=== PATIENT | female | born 1955 | race Caucasian/White ===

== ENCOUNTER → 2019-03-05 15:51 | Outpatient (CLI) | payer BC, SELFPAY ==
--- NOTE | 2019-03-05 15:57 | CT_ITS ---
PROCEDURE: CT LUNG SCREENING CLINICAL INDICATION: SMOKING Forty-five pack-year smoking history, asymptomatic for lung cancer COMPARISON: No exams were available for comparison TECHNIQUE: The exam was performed on a GE Light Speed [address] scanner using 2.90 mGy CTDI. A low dose helical CT CHEST was performed on a multi-detector scanner. All CT scans at the facility use one or more dose reduction, viz: automated exposure control, ma/kV adjustment per patient size (including targeted exams where dose is matched to indication, i.e. head), or iterative reconstruction technique. The LDCT was performed in a facility that meets the criteria for the screening program. Data regarding this exam was submitted to ACR which is an approved registry. The order for this exam indicates that it came as a result of a lung cancer screening counseling shard decision-making visit that included all the elements required of such a visit including smoking cessation. The radiologist interpreting this exam meets the CMS criteria for the LDCT lung cancer screening program. The exam is reported using the Lung-RADS classification scale and reported to the ACR registry. NOTE: This study was performed for the specific purposes of lung cancer screening and is not an alternative to diagnostic chest CT. RADIATION DOSE: CTDI vol(CT dose Index-volume) = 2.90mG DLP (Dose Length Product) = 100.44 mGcm FINDINGS: No mediastinal or hilar mass. Coronary artery calcifications are present. Normal heart size. Small hiatal hernia. There are mild atelectatic or fibrotic changes in the right lung base. Minimal parenchymal opacity noted in the right middle lobe medially probably due to small area of atelectasis or fibrosis. Upper abdominal images demonstrates exophytic isodense the along the posterior lateral aspect of the right kidney inferiorly incompletely imaged measuring at least 6.4 cm.. A small hyperdense area noted along the upper pole of the right kidney laterally at 7 mm and may be due to hyperdense cyst. Lobularity noted along the right kidney anteriorly at 2 cm. This also may be due to cyst but is more dense of what 1 would expect for simple cyst. An exophytic density projects off the anterolateral aspect of the left kidney measuring near water density and may represent a cyst. OTHER FINDINGS: The left adrenal gland is enlarged measuring 3 cm with an internal density at around -1 Hounsfield units consistent with an adenoma. There are degenerative changes in the thoracic spine. 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 This involves a the serratus muscles. IMPRESSION: Lung rads category 2 benign findings Coronary artery calcifications, Probable large right renal cyst with an isodense to the noted anteriorly on the right and may be due to renal lobulation or more dense cyst with a cyst also suspected on the left and a hyperdense cyst in the upper pole of the right kidney. Recommend bilateral renal ultrasound for further evaluation Probable left adrenal adenoma. Recommend annual LD CT Dictated by: Jimenez Rae MD 03/06/2019 09:14 Electronically signed by Jimenez Rae MD in [place] 03/06/2019 09:14
== END ==
PROVIDERS: PCP Internal Medicine; Visit Provider Internal Medicine
DX: Z87.891 Personal history of nicotine dependence (principal); Z12.2 Encounter for screening for malignant neoplasm of respiratory organs

== ENCOUNTER → 2019-03-19 10:02 | Outpatient (CLI) | payer BC, SELFPAY ==
--- NOTE | 2019-03-19 10:15 | US_ITS ---
PROCEDURE: US KIDNEY CLINICAL INDICATION: KIDNEY CYSTS BILAT COMPARISON: CT LUNG SCREENING from 03/05/2019 FINDINGS: Right kidney is 10.2 x 4.0 x 6.5 centimeters. The lower pole right kidney shows a hypoechoic lesion measuring 8.9 centimeters with irregular multiple internal septations. There is however some distal acoustic enhancement. There is no vascular flow of flow associated with the lesion. The echogenicity of the cortex compared to the liver appears to be normal. The suspected hyperdense upper pole right renal lesion on the CT scan is not visualized by ultrasound. Left kidney is 9.8 x 4.9 x 5.3 centimeters. The mid-lateral nodular focus measuring 1.4 centimeters in the cortex area is similar echogenicity compared to the renal cortex and there is no shadowing or enhancement. There is no shadowing echogenic foci hydronephrosis bilaterally. IMPRESSION: Right kidney shows complex septated lower pole cystic lesion measuring 8.9 centimeters. The described upper pole right renal nodule on the CT scan is not visualized. Mid lateral cortex left renal nodule area is indeterminate by ultrasound. To further evaluate these areas which are incompletely evaluated by ultrasound suggest MRI of the kidneys with and without contrast. Dictated by: Chris Lopez 03/19/2019 11:47 Electronically signed by Chris Lopez in [place] 03/19/2019 11:47
== END ==
PROVIDERS: PCP Internal Medicine; Visit Provider Internal Medicine
DX: N28.1 Cyst of kidney, acquired (principal)
CPT/HCPCS: 76770

== ENCOUNTER → 2019-03-27 07:14 | Outpatient (CLI) | payer BC, SELFPAY ==
--- NOTE | 2019-03-27 | CA_ITS ---
APPROVED REPORT Exam: Exercise Treadmill Technologist: Grace Sesay Ht: 5 ft 3 in Wt: 180 lbs BSA: 1.85 m2 HR: 77 bpm BP: 153/83 mmHg Indications: Shortness of Air, chest pain Medical History Medications: Aspirin,,,,, Stress Test Details Test: Dajuan HR Resting HR: 82 bpm Max Heart Rate (APMHR): 158 bpm Max HR Achieved: 139 bpm Target HR (85% APMHR): 134 bpm % of APMHR: 87 Recovery HR: 92 bpm BP Resting BP: 153.0/83.0 mmHg Max BP: 218.0/86.0 mmHg Recovery BP: 153.0/88.0 mmHg ECG Clinical Exercise duration: 06:00 min Highest Stage Achieved: Exercise capacity: 7.0 METs Stress ECG Conclusion Resting ECG: Normal sinus rhythm Patient exercised 6:00 on Dajuan Protocol. Test stopped due to shortness of air, fatigue. Symptoms: No chest pain. Arrhythmias/Ectopy: None ST-T Changes: 1mm horizontal and upsloping ST depression inferiorly at peak exercise. In late recovery, there is a 3/4mm horizontal ST depression inferiorly and 1/2mm laterally. Conclusion: Equivocal EKGs for ischemia. Myoview images reported separately.l Electronically signed by : Alex Ashton, 03/27/2019 20:32:44
--- NOTE | 2019-03-27 07:15 | CA_ITS ---
APPROVED REPORT EXAM: Comprehensive 2D, Doppler, and color-flow Echocardiogram City Superintendent: Vielka Bear RDCS Ht: 5 ft 3 in Wt: 186lbs BSA: 1.88 BP: 158/90 mmHg Indications: Chest Pain, Shortness of Breath, Obesity, Hypertension/HDD 2D Dimensions LVOT 2.00 cm (M/F) 1.5-2.5 M-Mode Dimensions RVDd 1.50 cm (0.9-2.6) LA Diam 2.40 cm (1.9-4.0) LVDd 5.60 cm (3.5-5.7) Ao Diam 3.10 cm (2.0-3.7) LVDs 4.20 cm (3.5-5.7) AV Cusp 2.00 cm (1.5-2.6) IVSd 1.40 cm (0.6-1.1) PWd 0.90 cm (0.6-1.1) EF (Teich) 49.00% FS 25.00% EDV (Teich) 154.00 mL ESV (Teich) 78.60 mL LV Diastology E/A Ratio 0.7 MED E' 6.82 (< 7 cm/sec) E'/MED E' Ratio 7.80 (>14) LAT E' 8.87 (<10 cm/sec) E/LAT E' Ratio 6.00 (>14) Mitral Valve MV E Max Juan F. 53.30 (40-130 cm/s) MV A Velocity 75.00 (40-130 cm/s) E/A Ratio 0.70 Left Ventricle Left atrium is mildly enlarged, left ventricle is normal size, mild concentric left ventricular hypertrophy, visually estimated ejection fraction 55% with no regional wall motion abnormality. Right Ventricle Right atrium and right ventricular mildly enlarged with normal contractility. Aortic Valve Aortic valve is minimally thickened and fibrosed. There is no aortic stenosis aortic insufficiency. Mitral Valve Mitral valve is grossly normal, there is mild mitral regurgitation. Tricuspid Valve Tricuspid valve is grossly normal, there is mild tricuspid regurgitation. Pulmonic Valve Pulmonic valve is poorly visualized. Great Vessels Aortic root is normal size. Pericardium No significant pericardial effusion noted. Conclusion 1. Normal left ventricular size, mild concentric left ventricular hypertrophy, visually estimated ejection fraction 55% with no regional wall motion abnormality, grade 1 diastolic dysfunction seen without tissue Doppler evidence of raise left atrial pressure. 2. Mild mitral and tricuspid regurgitation. 3. No significant pericardial effusion noted. Electronically signed by : Alex Ashton, 03/28/2019 07:03:51
--- NOTE | 2019-03-27 07:15 | NM_ITS ---
APPROVED REPORT Exam: Nuclear Stress Test Indication: chest pain, soa Patient Location: Outpatient Stress Tech: Grace Sesay OR Tech:Candis Vigil RYAN RT(R)(N) Ht: 5 ft 3 in Wt: 180 lbs Bra Size: xl HR: 77 bpm BP: 153/83 mmHg BSA: 1.85 m2 BMI: 31.8 History: chest pain, soa Procedure: Patient exercised on Dajuan protocol 6:00 minutes and sec, resting heart rate 77 bpm, resting blood pressure 153/83 mmHg, with exercise maximum heart rate achived was 139 bpm which is 88 % of the maximum predicted heart rate and blood pressure was 200/88 mmHg. Patient denied any complaint of chest pain. Patient has Adequate exercise capacity, achieved 7.0 METs of workload on treadmill, the blood pressure response to exercise was Hypertensive. Electrocardiogram Resting electrocardiogram showed sinus rhythm, with exercise there is almost a millimeter ST segment depression noted from the baseline EKG, more pronounced in the recovery. The EKG portion of the exercise Myoview is borderline for ischemia. Cardiac Stress and Resting SPECT Images: Cardiac Stress and Resting SPECT images were obtained using technetium 99m Myoview 31.1 mCi stress and 10.38 mCi at rest. Gated SPECT with analysis of segmental wall motion and calculation of the ejection fraction also done. Cardiac stress and resting SPECT images show uniform myocardial activity without segmental perfusion abnormality, computer derived ejection fraction is over 65% with no regional wall motion abnormality, right ventricle is normal size and contractility. Conclusion: 1. The EKG portion of the exercise Myoview is borderline for ischemia, patient has adequate exercise capacity achieved 7 mets of workload on treadmill, the blood pressure response to exercise was hypertensive, there was no exercise-induced chest discomfort. 2. No scintigraphic evidence of reversible ischemia seen at this level of exercise, computer derived ejection fraction is over 65% with no regional wall motion abnormality, right ventricle is normal size and contractility. Electronically signed by : Alex Ashton, 03/27/2019 20:35:04
--- NOTE | 2019-03-27 10:25 | HMH.ITSHM ---
Current Home Medications as stated by this patient Connor Garcia or medical field representative. [] asa
== END ==
PROVIDERS: PCP Internal Medicine; Visit Provider Nurse Practitioner Family
DX: R06.00 Dyspnea, unspecified (principal); R07.9 Chest pain, unspecified; F17.200 Nicotine dependence, unspecified, uncomplicated
CPT/HCPCS: 78452; 93017; 93306; A9502

== ENCOUNTER → 2019-04-03 07:50 | Outpatient (CLI) | payer BC, SELFPAY ==
[2019-04-03 08:21] LABS: Blood Urea Nitrogen 11 mg/dL (7-18); Creatinine,Serum 1.02 mg/dL (0.55-1.02); Estimated Glomerular Filt Rate 55 ml/min (>60); GFR (African American) 66 ML/MIN (>60)
--- NOTE | 2019-04-03 09:08 | MR_ITS ---
PROCEDURE: MR ABDOMEN WO/W CON CLINICAL INDICATION: RIGHT KIDNEY CYST Follow-up complex renal lesions COMPARISON: CT LUNG SCREENING from 03/05/2019 US KIDNEY from 03/19/2019 TECHNIQUE: Routine multiplanar multi echo sequences are performed without and with gadolinium enhancement. FINDINGS: There are multiple bilateral renal cyst. The largest cyst on the right includes a multi-septated complex cyst along the lower pole of the right kidney measuring 8.3 x 6.4 by 6.1 cm. In addition, there is a 2 cm cyst in the upper pole medially. . No abnormal enhancement is evident of the multi locular septated cystic lesion. The septa are thin without nodular enhancement. There is some hairline enhancement of the smooth septa with only minimal thickening of the septum inferiorly. This would represent a Bosniak 2 F minimally complex cyst recommend six-month follow-up. On the left there are multiple small cysts the largest at 1.6 cm in the mid polar region laterally. No suspicious nodules are evident on the left. A 7 mm nodules present along the mid polar region laterally and is hypointense on the T2 weighted images. The liver, spleen, right adrenal gland, and pancreas has an unremarkable appearance. There is a left adrenal nodule which measures 2.2 cm which shows some signal dropout on the out of phase images. The density of the nodule on CT is near that of water. This is probably related to an adenoma. Follow-up is suggested. The nodule has a somewhat heterogeneous appearance with some mild low-grade enhancement IMPRESSION: 1. 8 cm complex multi septated cyst along the lower pole of the right kidney. There are some thin hairline enhancing septa with some minimal thickening of the septa inferiorly. No nodular thickening or solid component evident. This is considered a Bosniak type 2 F minimally complex cyst. Six-month MRI follow-up is recommended. 2. Bilateral renal cysts. 3. Probable left renal adenoma. Suggest follow-up in 6 months Dictated by: Jimenez Rae MD 04/05/2019 05:18 Electronically signed by Jimenez Rae MD in [facility] 04/06/2019 11:27
--- NOTE | 2019-04-03 11:21 | HMH.ITSHM ---
Current Home Medications as stated by this patient Connor Garcia or jewelry sales representative. []LOSARTAN METOPROLOL
== END ==
PROVIDERS: Visit Provider Internal Medicine
DX: N28.1 Cyst of kidney, acquired (principal)
CPT/HCPCS: 36415; 74183; 82565; 84520; A9576

== ENCOUNTER → 2019-04-12 14:11 | Outpatient (CLI) | payer BC, SELFPAY ==
[2019-04-12 15:31] LABS: Anion Gap 13.1 mEq/L (5-15); Blood Urea Nitrogen 14 mg/dL (7-18); Calcium 9.1 mg/dL (8.5-10.1); Carbon Dioxide 28 mmol/L (21.0-32.0); Chloride 102 mmol/L (98-107); Estimated Glomerular Filt Rate 63 ml/min (>60); GFR (African American) 77 ML/MIN (>60); Glucose 123 mg/dL (74-106); Potassium 4.1 mmoL/L (3.5-5.1); Sodium 139 mmol/L (136-145)
== END ==
PROVIDERS: Visit Provider Urology
DX: I25.10 Atherosclerotic heart disease of native coronary artery without angina pectoris (principal); R06.00 Dyspnea, unspecified; R07.9 Chest pain, unspecified; I10 Essential (primary) hypertension; R53.83 Other fatigue; F17.200 Nicotine dependence, unspecified, uncomplicated; Z82.49 Family history of ischemic heart disease and other diseases of the circulatory system
CPT/HCPCS: 36415; 80048

== ENCOUNTER → 2019-04-17 15:58 | Outpatient (CLI) | payer BC, SELFPAY ==
--- NOTE | 2019-04-17 16:05 | MM_ITS ---
PROCEDURE: MM DIG SCREENING MAMM BI W/CAD Patient Age:64Y CLINICAL INDICATION: SCREENING No hormones no new complaints.. Previous cyst aspiration left breast family history. Paternal grandmother COMPARISON: DIGMAMMDX MAMMOGRAM DX-SPEECH LANGUAGE THERAPIST N/C from 10/06/2007 DIGMAMMDX MAMMOGRAM DX-SPEECH LANGUAGE THERAPIST N/C from 05/07/2008 [facility] DIG MAMM-SCREEN JANEY from 05/04/2013 [facility] DIG MAMM-SCREEN JANEY from 06/14/2016 TECHNIQUE: Standard CC and MLO images were obtained. R2 CAD reviewed. FINDINGS: Residual mild/Moderate dense breast tissue which dissipates from one-view to another but overall pattern is similar to previous studies with no significant new findings but no dominant or suspicious mass. CAD highlights no areas of concern but. Bilateral follow-up 1 year adequate Left breast: No significant new findings Small metallic marker clip left breast from previous percutaneous biopsy superior left breast again noted. Other minor areas asymmetric density stable, a IMPRESSION: Stable bilateral mammogram. No new areas of concern. Bilateral follow-up 1 year BI-RAD Category: 1 Negative FOLLOW-UP: 1YR 1 Year Follow-up (A letter has been sent to the patient regarding results of the study.) Dictated by: Darshan Groves MD 04/19/2019 14:05 Electronically signed by Darshan Groves MD in [facility] 04/19/2019 14:05
== END ==
PROVIDERS: PCP Internal Medicine; Visit Provider Internal Medicine
DX: Z12.31 Encounter for screening mammogram for malignant neoplasm of breast (principal)
CPT/HCPCS: 77067

== ENCOUNTER → 2020-03-13 10:03 | Outpatient (CLI) | payer BC, SELFPAY ==
--- NOTE | 2020-03-13 10:17 | MR_ITS ---
PROCEDURE: MR ABDOMEN WO/W CON CLINICAL INDICATION: KIDNEY CYST 6 MONTH F/U RENAL CYST Follow-up Bosniak 2 F cyst COMPARISON: CT CT LUNG SCREENING from 03/05/2019 MR MR ABDOMEN WO/W CON from 04/03/2019 TECHNIQUE: Routine multiplanar multi echo sequences are performed without and with gadolinium enhancement. FINDINGS: There are numerous bilateral renal cysts. The largest cyst represents a complex cyst along the lower pole of the right kidney as previously described. This measures 8.4 cm cephalad caudad and 6.9 cm transverse. There are some internal septations as previously described. Cyst does not appear significantly changed. There is some minimal thin enhancement of the septations. No thick nodular enhancement is evident.. There has been no significant change compared to the previous exam. The left adrenal gland is enlarged with decreased signal intensity on the out of phase images in keeping with an adenoma. The adrenal gland measures 2.4 by 2.5 cm and is slightly larger from the previous study previously measuring 2.4 x 2.3 cm. Continued follow-up is suggested. IMPRESSION: 1. Stable complex right renal cyst. 2. Left adrenal nodule slightly larger but shows decreased intensity on the out of phase imaging suggesting an adenoma. Suggest [address] follow-up to confirm stability. Dictated by: Jimenez Rae MD 03/18/2020 08:17 Jimenez Rae MD in [place] 03/18/2020 08:17
[2020-03-13 10:27] LABS: Blood Urea Nitrogen 15 mg/dl (7-17); Estimated Glomerular Filt Rate 72 ml/min (>60); GFR (African American) 88 ML/MIN (>60)
== END ==
PROVIDERS: PCP Internal Medicine; Visit Provider Internal Medicine
DX: N28.1 Cyst of kidney, acquired (principal)
CPT/HCPCS: 36415; 74183; 82565; 84520; A9576

== ENCOUNTER → 2020-09-26 16:09 | Outpatient (CLI) | payer BC, SELFPAY ==
[2020-09-26 16:23] LABS: Basophils # 0.1 K/mm3 (0-0.2); Basophils % 0.7 % (0.1-2.0); Eosinophils # 0.2 K/mm3 (0.0-0.4); Eosinophils % 1.7 % (0.1-12.0); Hematocrit 45.3 % (37.0-47.0); Hemoglobin 14.4 g/dL (12.2-16.2); Lymphocytes # 3.2 K/mm3 (0.7-4.5); Lymphocytes % 32.2 % (10-50); Mean Corpuscular HGB Conc 31.8 g/dL (31.8-35.4); Mean Corpuscular Hemoglobin 30.2 pg (27.0-31.2); Mean Corpuscular Volume 94.8 fl (81-99); Mean Platelet Volume 8.1 fl (7.4-10.4); Monocytes # 0.5 K/mm3 (0.1-1.0); Monocytes % 5.3 % (1.7-9.3); Neutrophils % 60.2 % (37.0-80.0); Platelet Count 182 K/mm3 (142-424); Red Blood Count 4.78 M/mm3 (4.20-5.40); Red Cell Distribution Width 13.5 % (11.5-17.5)
[2020-09-26 18:39] LABS: Chloride 107 mmol/L (98-107); Sodium 138 mmol/L (136-145)
[2020-09-26 18:41] LABS: Alanine Aminotransferase 17 U/L (12-78); Aspartate Amino Transferase 20 U/L (14-36); Blood Urea Nitrogen 13 mg/dl (7-17); Estimated Glomerular Filt Rate 72 ml/min (>60); GFR (African American) 88 ML/MIN (>60)
[2020-09-26 18:42] LABS: Albumin Level 4.3 g/dl (3.5-5.0); Albumin/Globulin Ratio 1.8 (1.1-1.8); Alkaline Phosphatase 136 U/L (38-126); Bilirubin,Total 0.3 mg/dl (0.2-1.3); Calcium 9.3 mg/dl (8.4-10.2); Carbon Dioxide 24 mmol/L (22.0-30.0); Chol/HDL Ratio 4.5 (1-3.5); Cholesterol 203 mg/dl (140-200); Globulin 2.4 g/dL (1.3-3.2); Glucose 126 mg/dl (74-100); HDL Cholesterol 45 mg/dl (40-60); Total Protein,Serum 6.7 g/dl (6.3-8.2); Triglycerides 178 mg/dl (30-150); VLDL Cholesterol 36 mg/dL (0-40)
[2020-09-26 18:54] LABS: Direct LDL Cholesterol 122.61 mg/dL (100-129)
== END ==
PROVIDERS: Visit Provider Internal Medicine
DX: G43.909 Migraine, unspecified, not intractable, without status migrainosus (principal); E78.5 Hyperlipidemia, unspecified; J44.9 Chronic obstructive pulmonary disease, unspecified
CPT/HCPCS: 80053; 80061; 85025

== ENCOUNTER → 2020-09-29 08:42 | Outpatient (CLI) | payer BC, SELFPAY ==
--- NOTE | 2020-09-29 08:52 | MR_ITS ---
PROCEDURE: MR ABDOMEN WO/W CON CLINICAL INDICATION: F/U RENAL LESION Six-month follow-up renal cysts COMPARISON: MR MR ABDOMEN WO/W CON from 04/03/2019 MR MR ABDOMEN WO/W CON from 03/13/2020 TECHNIQUE: Routine multiplanar multi echo sequences are performed without and with gadolinium enhancement. FINDINGS: There are numerous bilateral renal cyst more extensive on the right compared to the left with a large septated cyst along the lower pole of the right kidney measuring 8.6 x 7.4 6.5 cm not significantly changed. There is some minimal thin enhancement of the septations as before as seen on the.. No coarse or lobular enhancement evident. There is some slight increase in T1 signal of the cystic contents with some variable T2 hyperintensity which may be due to some underlying proteinaceous fluid. This is not significantly changed. Other small renal cysts are stable. 2.5 cm left adrenal nodule once again noted demonstrating some signal dropout on the out of phase images suggesting an adenoma. IMPRESSION: Stable MRI appearance of the abdomen. No change in the complex right renal cyst with no significant change since 04/03/2019. Annual follow-up suggested. Other smaller renal cysts also appear stable Stable 2.5 cm left adrenal nodule consistent with an adenoma Dictated by: Jimenez Rae MD 09/29/2020 14:27 iJmenez Rae MD in [facility] 09/29/2020 14:27
== END ==
PROVIDERS: PCP Internal Medicine; Visit Provider Internal Medicine
DX: N28.1 Cyst of kidney, acquired (principal)
CPT/HCPCS: 74183; A9576

== ENCOUNTER → 2021-09-23 13:31 | Outpatient (CLI) | payer BC, SELFPAY ==
[2021-09-23 15:36] LABS: Basophils # 0.1 K/mm3 (0-0.2); Basophils % 0.9 % (0.1-2.0); Eosinophils # 0.1 K/mm3 (0.0-0.4); Eosinophils % 1.4 % (0.1-12.0); Hematocrit 46.5 % (37.0-47.0); Hemoglobin 15.6 g/dL (12.2-16.2); Lymphocytes # 2.2 K/mm3 (0.7-4.5); Lymphocytes % 33.3 % (10-50); Mean Corpuscular HGB Conc 33.6 g/dL (31.8-35.4); Mean Corpuscular Hemoglobin 32.4 pg (27.0-31.2); Mean Corpuscular Volume 96.4 fl (81-99); Mean Platelet Volume 9.2 fl (7.4-10.4); Monocytes # 0.4 K/mm3 (0.1-1.0); Neutrophils # 3.8 K/mm3 (1.8-7.8); Neutrophils % 58.4 % (37.0-80.0); Platelet Count 239 K/mm3 (142-424); Red Blood Count 4.82 M/mm3 (4.20-5.40); Red Cell Distribution Width 14.1 % (11.5-17.5); White Blood Count 6.5 K/mm3 (4.8-10.8)
[2021-09-23 16:06] LABS: Alanine Aminotransferase 19 U/L (12-78); Albumin Level 4.2 g/dl (3.5-5.0); Albumin/Globulin Ratio 1.7 (1.1-1.8); Alkaline Phosphatase 128 U/L (38-126); Anion Gap 11.7 mEq/L (5-15); Aspartate Amino Transferase 21 U/L (14-36); Bilirubin,Total 0.5 mg/dl (0.2-1.3); Blood Urea Nitrogen 16 mg/dl (7-17); Calcium 8.8 mg/dl (8.4-10.2); Carbon Dioxide 25 mmol/L (22.0-30.0); Chloride 103 mmol/L (98-107); Chol/HDL Ratio 6.1 (1-3.5); Cholesterol 196 mg/dl (140-200); Estimated Glomerular Filt Rate 63 ml/min (>60); GFR (African American) 76 ML/MIN (>60); Globulin 2.5 g/dL (1.3-3.2); Glucose 96 mg/dl (74-100); HDL Cholesterol 32 mg/dl (40-60); Potassium 4.7 mmoL/L (3.5-5.1); Sodium 135 mmol/L (136-145); Total Protein,Serum 6.7 g/dl (6.3-8.2); Triglycerides 208 mg/dl (30-150); VLDL Cholesterol 42 mg/dL (0-40)
[2021-09-23 16:17] LABS: Direct LDL Cholesterol 107.46 mg/dL (100-129)
== END ==
PROVIDERS: Visit Provider Internal Medicine
DX: R73.01 Impaired fasting glucose (principal); E78.5 Hyperlipidemia, unspecified; D64.9 Anemia, unspecified
CPT/HCPCS: 80053; 80061; 83036; 85025

== ENCOUNTER → 2022-04-09 11:47 | Outpatient (CLI) | payer MEDICARE, SELFPAY ==
[2022-04-09 14:24] LABS: Chloride 103 mmol/L (98-107)
[2022-04-09 14:25] LABS: Potassium 4.8 mmoL/L (3.5-5.1); Sodium 141 mmol/L (136-145)
[2022-04-09 14:27] LABS: Alanine Aminotransferase 25 U/L (12-78); Albumin Level 4.6 g/dl (3.5-5.0); Albumin/Globulin Ratio 1.9 (1.1-1.8); Alkaline Phosphatase 170 U/L (38-126); Anion Gap 15.8 mEq/L (5-15); Aspartate Amino Transferase 27 U/L (14-36); Bilirubin,Total 0.5 mg/dl (0.2-1.3); Blood Urea Nitrogen 11 mg/dl (7-17); Carbon Dioxide 27 mmol/L (22.0-30.0); Estimated Glomerular Filt Rate 72 ml/min (>60); GFR (African American) 87 ML/MIN (>60); Globulin 2.4 g/dL (1.3-3.2)
[2022-04-09 14:28] LABS: Calcium 8.9 mg/dl (8.4-10.2); Chol/HDL Ratio 3.2 (1-3.5); Cholesterol 122 mg/dl (140-200); Glucose 92 mg/dl (74-100); HDL Cholesterol 38 mg/dl (40-60); Triglycerides 179 mg/dl (30-150); VLDL Cholesterol 36 mg/dL (0-40)
[2022-04-09 14:39] LABS: Direct LDL Cholesterol 47.64 mg/dL (100-129)
== END ==
PROVIDERS: PCP Internal Medicine; Visit Provider Internal Medicine
DX: R73.01 Impaired fasting glucose (principal); D64.9 Anemia, unspecified; E78.5 Hyperlipidemia, unspecified
CPT/HCPCS: 80053; 80061

== ENCOUNTER → 2022-10-11 12:39 | Outpatient (CLI) | payer MEDICARE, SELFPAY ==
[2022-10-11 14:16] LABS: Basophils % 0.4 % (0.1-2.0); Eosinophils # 0.1 K/mm3 (0.0-0.4); Eosinophils % 1.1 % (0.1-12.0); Hematocrit 45.8 % (37.0-47.0); Lymphocytes # 2.6 K/mm3 (0.7-4.5); Lymphocytes % 29.2 % (10-50); Mean Corpuscular HGB Conc 32.8 g/dL (31.8-35.4); Mean Corpuscular Hemoglobin 31.6 pg (27.0-31.2); Mean Corpuscular Volume 96.4 fl (81-99); Mean Platelet Volume 9.4 fl (7.4-10.4); Monocytes # 0.4 K/mm3 (0.1-1.0); Monocytes % 4.9 % (1.7-9.3); Neutrophils # 5.7 K/mm3 (1.8-7.8); Neutrophils % 64.4 % (37.0-80.0); Platelet Count 199 K/mm3 (142-424); Red Blood Count 4.75 M/mm3 (4.20-5.40); Red Cell Distribution Width 14.6 % (11.5-17.5); White Blood Count 8.9 K/mm3 (4.8-10.8)
[2022-10-11 14:37] LABS: Alanine Aminotransferase 24 U/L (12-78); Albumin Level 4.2 g/dl (3.5-5.0); Albumin/Globulin Ratio 1.6 (1.1-1.8); Alkaline Phosphatase 146 U/L (38-126); Anion Gap 13.6 mEq/L (5-15); Aspartate Amino Transferase 22 U/L (14-36); Bilirubin,Total 0.7 mg/dl (0.2-1.3); Blood Urea Nitrogen 13 mg/dl (7-17); Calcium 8.6 mg/dl (8.4-10.2); Carbon Dioxide 27 mmol/L (22.0-30.0); Chloride 103 mmol/L (98-107); Chol/HDL Ratio 3.1 (1-3.5); Cholesterol 121 mg/dl (140-200); Estimated Glomerular Filt Rate 72 ml/min (>60); GFR (African American) 87 ML/MIN (>60); Globulin 2.6 g/dL (1.3-3.2); Glucose 90 mg/dl (74-100); HDL Cholesterol 39 mg/dl (40-60); Potassium 4.6 mmoL/L (3.5-5.1); Sodium 139 mmol/L (136-145); Total Protein,Serum 6.8 g/dl (6.3-8.2); Triglycerides 179 mg/dl (30-150); VLDL Cholesterol 36 mg/dL (0-40)
[2022-10-11 14:55] LABS: Direct LDL Cholesterol 51.27 mg/dL (100-129)
== END ==
PROVIDERS: PCP Internal Medicine; Visit Provider Internal Medicine
DX: E78.5 Hyperlipidemia, unspecified (principal); D64.9 Anemia, unspecified; F17.209 Nicotine dependence, unspecified, with unspecified nicotine-induced disorders
CPT/HCPCS: 80053; 80061; 85025

== ENCOUNTER → 2023-04-12 13:29 | Outpatient (CLI) | payer MEDICARE, SELFPAY ==
[2023-04-12 14:27] LABS: Alanine Aminotransferase 27 U/L (12-78); Albumin Level 4.5 g/dl (3.5-5.0); Albumin/Globulin Ratio 1.8 (1.1-1.8); Alkaline Phosphatase 147 U/L (38-126); Aspartate Amino Transferase 30 U/L (14-36); Bilirubin,Total 0.5 mg/dl (0.2-1.3); Blood Urea Nitrogen 13 mg/dl (7-17); Calcium 9.2 mg/dl (8.4-10.2); Carbon Dioxide 26 mmol/L (22.0-30.0); Chloride 102 mmol/L (98-107); Chol/HDL Ratio 3.9 (1-3.5); Cholesterol 132 mg/dl (140-200); Estimated Glomerular Filt Rate 72 ml/min (>60); GFR (African American) 87 ML/MIN (>60); Globulin 2.5 g/dL (1.3-3.2); Glucose 96 mg/dl (74-100); HDL Cholesterol 34 mg/dl (40-60); Sodium 137 mmol/L (136-145); Triglycerides 193 mg/dl (30-150); VLDL Cholesterol 39 mg/dL (0-40)
[2023-04-12 14:49] LABS: Direct LDL Cholesterol 66.53 mg/dL (100-129)
== END ==
PROVIDERS: PCP Internal Medicine; Visit Provider Internal Medicine
DX: E78.5 Hyperlipidemia, unspecified (principal); J44.9 Chronic obstructive pulmonary disease, unspecified; G43.909 Migraine, unspecified, not intractable, without status migrainosus; Z72.0 Tobacco use
CPT/HCPCS: 80053; 80061

== ENCOUNTER 2023-10-11 14:05 | Outpatient (CLI) | payer MEDICARE, SELFPAY ==
[2023-10-11 14:49] LABS: Basophils # 0.1 K/mm3 (0-0.2); Basophils % 0.8 % (0.1-2.0); Eosinophils # 0.2 K/mm3 (0.0-0.4); Eosinophils % 2.4 % (0.1-12.0); Hematocrit 48.5 % (37.0-47.0); Hemoglobin 15.6 g/dL (12.2-16.2); Lymphocytes # 2.5 K/mm3 (0.7-4.5); Lymphocytes % 31.9 % (10-50); Mean Corpuscular HGB Conc 32.1 g/dL (31.8-35.4); Mean Corpuscular Hemoglobin 32.3 pg (27.0-31.2); Mean Corpuscular Volume 100.6 fl (81-99); Mean Platelet Volume 9.7 fl (7.4-10.4); Monocytes # 0.5 K/mm3 (0.1-1.0); Monocytes % 5.9 % (1.7-9.3); Neutrophils # 4.6 K/mm3 (1.8-7.8); Platelet Count 202 K/mm3 (142-424); Red Blood Count 4.82 M/mm3 (4.20-5.40); Red Cell Distribution Width 14.5 % (11.5-17.5); White Blood Count 7.9 K/mm3 (4.8-10.8)
[2023-10-11 15:05] LABS: Alanine Aminotransferase 25 U/L (12-78); Albumin Level 4.4 g/dl (3.5-5.0); Albumin/Globulin Ratio 1.8 (1.1-1.8); Alkaline Phosphatase 134 U/L (38-126); Anion Gap 12.8 mEq/L (5-15); Aspartate Amino Transferase 28 U/L (14-36); Bilirubin,Total 0.7 mg/dl (0.2-1.3); Blood Urea Nitrogen 15 mg/dl (7-17); Calcium 9.1 mg/dl (8.4-10.2); Carbon Dioxide 26 mmol/L (22.0-30.0); Chloride 104 mmol/L (98-107); Chol/HDL Ratio 4.2 (1-3.5); Cholesterol 138 mg/dl (140-200); Estimated Glomerular Filt Rate 63 ml/min (>60); GFR (African American) 76 ML/MIN (>60); Globulin 2.4 g/dL (1.3-3.2); Glucose 91 mg/dl (74-100); HDL Cholesterol 33 mg/dl (40-60); Potassium 4.8 mmoL/L (3.5-5.1); Sodium 138 mmol/L (136-145); Total Protein,Serum 6.8 g/dl (6.3-8.2); Triglycerides 189 mg/dl (30-150); VLDL Cholesterol 38 mg/dL (0-40)
[2023-10-11 15:15] LABS: Direct LDL Cholesterol 63.47 mg/dL (100-129)
== END 2023-10-11 23:59 | disposition home or self-care (01) ==
LOC: LAB.DROPOF 14:10
PROVIDERS: PCP Internal Medicine; Visit Provider Internal Medicine
DX: J44.9 Chronic obstructive pulmonary disease, unspecified (principal); E78.5 Hyperlipidemia, unspecified; J31.0 Chronic rhinitis; F17.210 Nicotine dependence, cigarettes, uncomplicated; G43.909 Migraine, unspecified, not intractable, without status migrainosus; M47.817 Spondylosis without myelopathy or radiculopathy, lumbosacral region; Z79.899 Other long term (current) drug therapy
CPT/HCPCS: 80053; 80061; 85025

== ENCOUNTER 2024-04-11 12:40 | Outpatient (CLI) | payer MEDICARE, SELFPAY ==
[2024-04-11 15:57] LABS: Basophils # 0.1 K/mm3 (0-0.2); Basophils % 0.7 % (0.1-2.0); Eosinophils # 0.1 K/mm3 (0.0-0.4); Eosinophils % 1.6 % (0.1-12.0); Hemoglobin 15.8 g/dL (12.2-16.2); Lymphocytes # 2.7 K/mm3 (0.7-4.5); Lymphocytes % 32.6 % (10-50); Mean Corpuscular HGB Conc 32.9 g/dL (31.8-35.4); Mean Corpuscular Hemoglobin 31.7 pg (27.0-31.2); Mean Corpuscular Volume 96.4 fl (81-99); Mean Platelet Volume 9.1 fl (7.4-10.4); Monocytes # 0.5 K/mm3 (0.1-1.0); Monocytes % 6.1 % (1.7-9.3); Neutrophils % 58.9 % (37.0-80.0); Platelet Count 187 K/mm3 (142-424); Red Blood Count 4.98 M/mm3 (4.20-5.40); Red Cell Distribution Width 14.6 % (11.5-17.5); White Blood Count 8.4 K/mm3 (4.8-10.8)
[2024-04-11 16:33] LABS: Alanine Aminotransferase 21 U/L (12-78); Albumin Level 4.4 g/dl (3.5-5.0); Albumin/Globulin Ratio 1.9 (1.1-1.8); Alkaline Phosphatase 142 U/L (38-126); Anion Gap 11.4 mEq/L (5-15); Aspartate Amino Transferase 22 U/L (14-36); Bilirubin,Total 0.7 mg/dl (0.2-1.3); Blood Urea Nitrogen 13 mg/dl (7-17); Calcium 9.3 mg/dl (8.4-10.2); Carbon Dioxide 26 mmol/L (22.0-30.0); Chloride 106 mmol/L (98-107); Chol/HDL Ratio 3.1 (1-3.5); Cholesterol 116 mg/dl (140-200); Estimated Glomerular Filt Rate 72 ml/min (>60); GFR (African American) 87 ML/MIN (>60); Globulin 2.3 g/dL (1.3-3.2); Glucose 77 mg/dl (74-100); HDL Cholesterol 38 mg/dl (40-60); Potassium 4.4 mmoL/L (3.5-5.1); Sodium 139 mmol/L (136-145); Total Protein,Serum 6.7 g/dl (6.3-8.2); Triglycerides 182 mg/dl (30-150); VLDL Cholesterol 36 mg/dL (0-40)
== END 2024-04-11 23:59 | disposition home or self-care (01) ==
LOC: LAB.DROPOF 04-12 12:40
PROVIDERS: PCP Internal Medicine; Visit Provider Internal Medicine
DX: I10 Essential (primary) hypertension (principal); E78.5 Hyperlipidemia, unspecified; I25.10 Atherosclerotic heart disease of native coronary artery without angina pectoris; Z82.49 Family history of ischemic heart disease and other diseases of the circulatory system; G44.1 Vascular headache, not elsewhere classified; M15.0 Primary generalized (osteo)arthritis; N28.1 Cyst of kidney, acquired; J30.9 Allergic rhinitis, unspecified; I51.89 Other ill-defined heart diseases
CPT/HCPCS: 36415; 80053; 80061; 85025

== ENCOUNTER 2024-10-11 10:25 | Outpatient (CLI) | payer MEDICARE, SELFPAY ==
[2024-10-11 15:42] LABS: Chloride 105 mmol/L (98-107)
[2024-10-11 15:43] LABS: Albumin Level 4.5 g/dl (3.5-5.0); Potassium 4.5 mmoL/L (3.5-5.1); Sodium 139 mmol/L (136-145)
[2024-10-11 15:46] LABS: Alanine Aminotransferase 25 U/L (12-78); Albumin/Globulin Ratio 1.8 (1.1-1.8); Alkaline Phosphatase 133 U/L (38-126); Anion Gap 13.5 mEq/L (5-15); Aspartate Amino Transferase 26 U/L (14-36); Bilirubin,Total 0.6 mg/dl (0.2-1.3); Blood Urea Nitrogen 12 mg/dl (7-17); Calcium 8.9 mg/dl (8.4-10.2); Carbon Dioxide 25 mmol/L (22.0-30.0); Cholesterol 130 mg/dl (140-200); Estimated Glomerular Filt Rate 72 ml/min (>60); GFR (African American) 87 ML/MIN (>60); Globulin 2.5 g/dL (1.3-3.2); Glucose 84 mg/dl (74-100); Triglycerides 220 mg/dl (30-150); VLDL Cholesterol 44 mg/dL (0-40)
[2024-10-11 15:47] LABS: Chol/HDL Ratio 3.6 (1-3.5); HDL Cholesterol 36 mg/dl (40-60)
[2024-10-11 15:58] LABS: Direct LDL Cholesterol 52.72 mg/dL (100-129)
== END 2024-10-11 23:59 | disposition home or self-care (01) ==
LOC: LAB.DROPOF 10-12 09:57
PROVIDERS: PCP Internal Medicine; Visit Provider Internal Medicine
DX: E78.5 Hyperlipidemia, unspecified (principal); I10 Essential (primary) hypertension; I25.10 Atherosclerotic heart disease of native coronary artery without angina pectoris; M15.0 Primary generalized (osteo)arthritis
CPT/HCPCS: 80053; 80061

== ENCOUNTER 2025-04-15 08:50 | Outpatient (CLI) | payer MEDICARE, SELFPAY ==
[2025-04-15 13:49] LABS: Hematocrit 49.0 % (37.0-47.0); Hemoglobin 16.2 g/dL (12.2-16.2); Immature Granulocytes % 0.5 %; Mean Corpuscular HGB Conc 33.1 g/dL (31.8-35.4); Mean Corpuscular Hemoglobin 31.2 pg (27.0-31.2); Mean Corpuscular Volume 94.2 fl (81-99); Nucleated Red Blood Cells % 0 %; Platelet Count 215 K/mm3 (142-424); Red Blood Count 5.20 M/mm3 (4.20-5.40); Red Cell Distribution Width-SD 47.0 fL; White Blood Count 10.2 K/mm3 (4.8-10.8)
[2025-04-15 14:09] LABS: Albumin Level 3.6 g/dl (3.5-5.0); Chloride 101 mmol/L (98-107); Potassium 4.7 mmoL/L (3.5-5.1); Sodium 135 mmol/L (136-145)
[2025-04-15 14:12] LABS: Alanine Aminotransferase 23 U/L (12-78); Albumin/Globulin Ratio 1.0 (1.1-1.8); Alkaline Phosphatase 166 U/L (38-126); Anion Gap 11.7 mEq/L (5-15); Aspartate Amino Transferase 28 U/L (14-36); Bilirubin,Total 0.6 mg/dl (0.2-1.3); Blood Urea Nitrogen 13 mg/dl (7-17); Carbon Dioxide 27 mmol/L (22.0-30.0); Cholesterol 116 mg/dl (140-200); Creatinine,Serum 0.80 mg/dl (0.52-1.04); Estimated Glomerular Filt Rate 71 ml/min (>60); GFR (African American) 86 ML/MIN (>60); Globulin 3.5 g/dL (1.3-3.2); Total Protein,Serum 7.1 g/dl (6.3-8.2); Triglycerides 150 mg/dl (30-150)
[2025-04-15 14:13] LABS: Calcium 8.9 mg/dl (8.4-10.2); Glucose 92 mg/dl (74-100); HDL Cholesterol 40 mg/dl (40-60)
== END 2025-04-15 23:59 ==
LOC: LAB.DROPOF 04-16 09:38
PROVIDERS: PCP Internal Medicine; Visit Provider Internal Medicine
DX: E78.5 Hyperlipidemia, unspecified (principal); I10 Essential (primary) hypertension
CPT/HCPCS: 80053; 80061; 85025